=== PATIENT | male | born 1995 | race Hispanic/Latino ===

== ENCOUNTER 2017-06-20 23:40 | Emergency (ER) | payer OTHER ==
[~2017-06-20] VITALS: Ht 170.2 cm; Wt 82.7 kg
[2017-06-21] MEDS ORDERED: BUPIVACAINE HCL 0.5% 10 ML VIAL SC ONE (00:30)
[2017-06-21] MEDS ORDERED: LIDOCAINE W/EPINEPHRINE 1% 20ML VIAL SC ONE (00:30)
--- NOTE | 2017-06-21 01:20 | REPUSA ---
CLINICAL HISTORY: Head trauma. TECHNIQUE: Multiple axial brain CT scan sections were obtained from base to vertex without contrast a dministration. COMMENTS: Mild subgaleal soft tissue hematoma. There is no evidence of skull fracture. The study shows normal configuration of sella turcica. There are no intra or extra-axial collections. There is no mass effect or midline shift. There is no evidence of hematoma formation. No hydrocephal us is present. No abnormal calcifications are noted. No significant abnormalities are seen either in the posterior fossa or supratentorial compartment. The sinuses and mastoid air cells are patent. IMPRESSION: Frontal subgaleal soft tissue hematoma. No evidence of acute intracranial pathology. No intracranial hemorrhage or skull fracture. Thank you for your kind referral of this patient.
--- NOTE | 2017-06-21 01:44 | REP ---
Clinical: Trauma. Possible foreign body. Technique: AP, lateral, bilateral oblique views left hand . Findings: The osseous structures and joint spaces are intact and normal. There is no evidence for acute fracture or dislocation. No subcutaneous emphysema or radiodense foreign body. Impression: No foreign body identified. No acute fracture or dislocation. Signed by Cam Dia MD 06/21/2017 01:35 A
[2017-06-21] MEDS ORDERED: DERMABOND TOPICAL SKIN ADHESIVE TOP ONE (02:30)
[2017-06-21 03:01] VITALS: BP 146/84
== END 2017-06-21 03:02 | disposition home or self-care (01) ==
LOC: M ED 23:40
DX: S01.82XA Laceration with foreign body of other part of head, initial encounter (principal); W01.198A Fall on same level from slipping, tripping and stumbling with subsequent striking against other object, initial encounter; Y92.099 Unspecified place in other non-institutional residence as the place of occurrence of the external cause; Y93.01 Activity, walking, marching and hiking; Y99.9 Unspecified external cause status